=== PATIENT | male | born 1965 | race Caucasian/White ===

== ENCOUNTER 2024-03-01 19:50 | Emergency (ER) | payer OTHER ==
[~2024-03-01] VITALS: Ht 180.3 cm; Wt 113.4 kg
[2024-03-01 19:51] VITALS: BP 119/71; PULSE 84; RESP 18; TEMP 98.1; O2SAT 95
[2024-03-01 20:10] VITALS: BP 119/71; PULSE 84; RESP 18; TEMP 98.1; O2SAT 95
== END 2024-03-01 21:30 | disposition left against medical advice (07) ==
LOC: MED 19:50
DX: S20.213A Contusion of bilateral front wall of thorax, initial encounter (principal); F10.129 Alcohol abuse with intoxication, unspecified; X58.XXXA Exposure to other specified factors, initial encounter; Y93.89 Activity, other specified; Y92.89 Other specified places as the place of occurrence of the external cause; Y99.8 Other external cause status; Y90.9 Presence of alcohol in blood, level not specified
CPT/HCPCS: 71250; 99284